=== PATIENT | female | born 1940 | race Caucasian/White ===

== ENCOUNTER 2022-11-04 13:37 | Observation (INO) | payer MEDICARE, BC ==
[2022-11-04] MEDS ORDERED: SUBLIMAZE 100 MCG/2 ML IV ONE (15:04)
[2022-11-04] MEDS ORDERED: SUBLIMAZE 100 MCG/2 ML ONE (15:05)
--- NOTE | 2022-11-04 15:10 | XRAY ---
Indication: Right hip/femur pain following fall. Multiple contiguous axial images obtained through the right femur to include hip and knee joint. Sagittal and coronal reformatted images obtained. Comparison: None Osseous structures demineralized consistent with patient's age. Nondisplaced hairline fractures involving posterior roof and medial wall right acetabulum. Additional mildly displaced fracture right inferior pubic ramus with bayonet apposition/alignment. 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 Tiny fabella posterior to lateral condyle. No other acute fracture or suspicious bony lesions. Right hip and right knee joint intact without abnormal effusion. Visualized noncontrasted soft tissues demonstrates minimal right iliac and right common femoral artery calcifications. Impression: 1. Nondisplaced fracture right acetabulum and mild displaced right inferior pubic ramus fracture. 2. Incidental osteopenia, right femur neck bone cyst, lateral femoral condyle bone island, and minimal arteriosclerotic disease.
--- NOTE | 2022-11-04 15:16 | ERPHSYRPT ---
- History of Present Illness Time Seen by Provider: 11/04/22 15:10 Source: patient Exam Limitations: no limitations Patient Subjective Stated Complaint: Fall Triage Nursing Assessment: Patient brought back to ED per EMS and transferred to bed with assist of 2. Patient A+O X.3 Patient's skin pink, warm and dry. Patient complains of fall. Patient states she was standing on a 3 step ladder and it was not locked and she fell backwards landing on her buttocks. Patient complains of right hip/pelvic and buttock pain. Shortening and external rotation noted to right leg. Patient complains of pain 4/10. Physician History: Patient is a 82-year-old female presents to our ED via EMS for evaluation of right hip pain. Patient was standing on a stepladder. Patient fell off of the ladder onto her right hip. Patient now has significant pain at her right hip rating to her groin area. Pain rated 4 out of 10. Patient received 50 mcg of fentanyl prior to arrival. Patient declined additional pain medication. No other injuries. No BHT or LOC. No neck pain. Cervical spine cleared clinically. Symptoms are moderate in intensity. Movement reproduces pain. Pain improved with rest. Patient's son at bedside. They voiced no other complaints or concerns at this time. Portions of this note were created with voice recognition technology. There may be grammatical, spelling, punctuation or sound alike errors Timing/Duration: today Severity: moderate Modifying Factors: Improves With: movement Associated Symptoms: denies symptoms Allergies/Adverse Reactions: egg Allergy (Verified 11/04/22 13:38) Home Medications: Calcium Carbonate/Vitamin D3 [Calcium 600 + Vit D Tablet] 1 tab PO DAILY 11/20/20 [History] Hx Influenza Vaccination/Date Given: No Hx Pneumococcal Vaccination/Date Given: No Immunizations Up to Date: Yes Travel Risk - International Travel Have you traveled outside of the country in past 3 weeks: No - Coronavirus Screening Are you exhibiting any of the following symptoms?: No Close contact with a COVID-19 positive Pt in past 14-21 Days: No - Vaccine Status Have you recieved a Covid-19 vaccination: Yes [facility] [employer]: Unknown - Vaccination Dates Date of 2cond Vaccination (if applicable): na Dates if Unknown: na - Review of Systems Constitutional: No Symptoms, No Fever, No Chills Eyes: No Symptoms Ears, Nose, & Throat: No Symptoms Respiratory: No Symptoms, No Cough, No Dyspnea Cardiac: No Symptoms, No Chest Pain, No Edema, No Syncope Abdominal/Gastrointestinal: No Symptoms, No Abdominal Pain, No Nausea, No Vomiting, No Diarrhea Genitourinary Symptoms: No Symptoms, No Dysuria Musculoskeletal: No Symptoms, No Back Pain, No Neck Pain Skin: No Symptoms, No Rash Neurological: No Symptoms, No Dizziness, No Focal Weakness, No Sensory Changes Psychological: No Symptoms Endocrine: No Symptoms Hematologic/Lymphatic: No Symptoms Immunological/Allergic: No Symptoms All Other Systems: Reviewed and Negative - Past Medical History Pertinent Past Medical History: Yes Neurological History: No Pertinent History ENT History: Cataracts Cardiac History: No Pertinent History Respiratory History: Tuberculosis Endocrine Medical History: No Pertinent History Musculoskeletal History: Osteoporosis GI Medical History: No Pertinent History History: No Pertinent History Psycho-Social History: No Pertinent History Female Reproductive Disorders: No Pertinent History - Past Surgical History Past Surgical History: Yes Neuro Surgical History: No Pertinent History Cardiac: No Pertinent History Respiratory: No Pertinent History Gastrointestinal: Appendectomy Genitourinary: No Pertinent History Musculoskeletal: Orthopedic Surgery Female Surgical History: Tubal Ligation Other Surgical History: right knee plates and screws, skin cancer removed on nose - Social History Smoking Status: Former smoker How long have you smoked: 65 Exposure to second hand smoke: Yes Drug Use: none Patient Lives Alone: No - Nursing Vital Signs Nursing Vital Signs: Initial Vital Signs Temperature 98.7 F 11/04/22 13:39 Pulse Rate 86 11/04/22 13:39 Respiratory Rate 18 11/04/22 13:39 Blood Pressure 140/68 11/04/22 13:39 O2 Sat by Pulse Oximetry 95 11/04/22 13:39 Pain Scale Pain Intensity 0 - Physical Exam General Appearance: no apparent distress, alert Eye Exam: PERRL/EOMI, eyes nml inspection Ears, Nose, Throat Exam: normal ENT inspection, TMs normal, pharynx normal, moist mucous membranes Neck Exam: normal inspection, non-tender, supple, full range of motion Respiratory Exam: normal breath sounds, lungs clear, airway intact, No respiratory distress Cardiovascular Exam: regular rate/rhythm, normal heart sounds, normal peripheral pulses Gastrointestinal/Abdomen Exam: soft, normal bowel sounds, No tenderness, No mass Pelvic Exam: other (Tenderness to palpation right hip) Back Exam: normal inspection, normal range of motion, No CVA tenderness, No vertebral tenderness Extremity Exam: normal inspection, normal range of motion, pelvis stable Neurologic Exam: alert, oriented x 3, cooperative, normal mood/affect, nml cerebellar function, nml station & gait, sensation nml, No motor deficits Skin Exam: normal color, warm, dry, No rash Lymphatic Exam: No adenopathy SpO2 Interpretation: normal SpO2: 95 O2 Delivery: Room Air - Course Nursing assessment & vital signs reviewed: Yes - CT Exams Lower Extremity CT Interpretation: Tele-radiologist Report (Fracture of right acetabulum and right inferior pubic ramus fracture. Right femoral neck bone cyst) Ordered Tests: Active Orders 24 hr Category Date Time Status Villarreal [Catheter-[place] Villarreal] STAT Care 11/04/22 15:59 Active LOWER EXTREMITY WO CONTRAST [CT] Stat Exams 11/04/22 14:14 Completed CBC W DIFF Stat Lab 11/04/22 15:55 Completed CMP Stat Lab 11/04/22 15:55 Completed UA W/RFX UR CULTURE Stat Lab 11/04/22 14:45 Completed Transfer Order Routine Transfer 11/04/22 Ordered Medication Summary Discontinued Medications Generic Name Dose Route Start Last Admin Trade Name Tuan PRN Reason Stop Dose Admin Fentanyl Citrate 50 mcg 11/04/22 15:04 11/04/22 15:06 Fentanyl Citrate 100 Mcg/2 Ml* Vial IV 11/04/22 15:05 50 mcg STAT ONE Administration Fentanyl Citrate Confirm 11/04/22 15:05 Fentanyl Citrate 100 Mcg/2 Ml* Vial Administered 11/04/22 15:06 Dose 100 mcg .ROUTE .[employer]-MED ONE Lab/Rad Data: Laboratory Result Diagrams 11/04/22 15:55 11/04/22 15:55 Laboratory Results 11/04/22 11/04/22 11/04/22 Range/Units 18:00 15:55 15:55 WBC 12.4 H (4.0-10.5) x10^3/uL RBC 3.48 L (4.1-5.4) x10^6/uL Hgb 11.0 L (12.0-16.0) g/dL Hct 33.8 L (35-47) % MCV 97.1 (78-100) fL MCH 31.6 (26-32) pg MCHC 32.5 (32-36) g/dL RDW 12.6 (11.5-14.0) % Plt Count 161 (150-450) x10^3/uL MPV 9.9 (7.5-11.0) fL Gran % 78.0 H (36.0-66.0) % Immature Gran % (Auto) 0.6 H (0.00-0.4) % Nucleat RBC Rel Count 0.0 (0.00-0.1) % Eos # (Auto) 0.07 (0-0.5) x10^3/uL Immature Gran # (Auto) 0.08 H (0.00-0.03) x10^3u/L Absolute Lymphs (auto) 1.80 (1.0-4.6) x10^3/uL Absolute Monos (auto) 0.73 (0.0-1.3) x10^3/uL Absolute Nucleated RBC 0.00 (0.00-0.01) x10^3u/L Lymphocytes % 14.5 L (24.0-44.0) % Monocytes % 5.9 (0.0-12.0) % Eosinophils % 0.6 (0.00-5.0) % Basophils % 0.4 (0.0-0.4) % Absolute Granulocytes 9.71 H (1.4-6.9) x10^3/uL Basophils # 0.05 (0-0.4) x10^3/uL Sodium 142 (137-145) mmol/L Potassium 4.3 (3.5-5.1) mmol/L Chloride 107 (98-107) mmol/L Carbon Dioxide 31 H (22-30) mmol/L Anion Gap 7.8 (5-15) MEQ/L BUN 15 (7-17) mg/dL Creatinine 1.16 H (0.52-1.04) mg/dL Estimated GFR 47.8 ML/MIN Glucose 125 H (74-106) mg/dL Calcium 9.0 (8.4-10.2) mg/dL Total Bilirubin 0.40 (0.2-1.3) mg/dL AST 32 (14-36) U/L ALT 23 (0-35) U/L Alkaline Phosphatase 68 (38-126) U/L Serum Total Protein 7.3 (6.3-8.2) g/dL Albumin 4.1 (3.5-5.0) g/dL Urine Color (Yellow) Urine Appearance (Clear) Urine pH (4.6-8.0) Ur Specific [place] (1.005-1.030) Urine Protein (Negative) Urine Glucose (UA) (Negative) mg/dL Urine Ketones (Negative) Urine Blood (Negative) Urine Nitrite (Negative) Urine Bilirubin (Negative) Urine Urobilinogen (0.2) mg/dL Ur Leukocyte Esterase (Negative) U Hyaline Cast (Auto) (0-2) /LPF Urine Microscopic RBC (0-5) /HPF Urine Microscopic WBC (0-5) /HPF Ur Epithelial Cells (None Seen) /HPF Urine Bacteria (None Seen) /HPF Urine Culture Reflexed (NO) Influenza Type A Ag NEGATIVE (NEGATIVE) Influenza Type B Ag NEGATIVE (NEGATIVE) RSV (PCR) NEGATIVE (Negative) SARS-CoV-2 (PCR) NEGATIVE (NEGATIVE) 11/04/22 Range/Units 14:45 WBC (4.0-10.5) x10^3/uL RBC (4.1-5.4) x10^6/uL Hgb (12.0-16.0) g/dL Hct (35-47) % MCV (78-100) fL MCH (26-32) pg MCHC (32-36) g/dL RDW (11.5-14.0) % Plt Count (150-450) x10^3/uL MPV (7.5-11.0) fL Gran % (36.0-66.0) % Immature Gran % (Auto) (0.00-0.4) % Nucleat RBC Rel Count (0.00-0.1) % Eos # (Auto) (0-0.5) x10^3/uL Immature Gran # (Auto) (0.00-0.03) x10^3u/L Absolute Lymphs (auto) (1.0-4.6) x10^3/uL Absolute Monos (auto) (0.0-1.3) x10^3/uL Absolute Nucleated RBC (0.00-0.01) x10^3u/L Lymphocytes % (24.0-44.0) % Monocytes % (0.0-12.0) % Eosinophils % (0.00-5.0) % Basophils % (0.0-0.4) % Absolute Granulocytes (1.4-6.9) x10^3/uL Basophils # (0-0.4) x10^3/uL Sodium (137-145) mmol/L Potassium (3.5-5.1) mmol/L Chloride (98-107) mmol/L Carbon Dioxide (22-30) mmol/L Anion Gap (5-15) MEQ/L BUN (7-17) mg/dL Creatinine (0.52-1.04) mg/dL Estimated GFR ML/MIN Glucose (74-106) mg/dL Calcium (8.4-10.2) mg/dL Total Bilirubin (0.2-1.3) mg/dL AST (14-36) U/L ALT (0-35) U/L Alkaline Phosphatase (38-126) U/L Serum Total Protein (6.3-8.2) g/dL Albumin (3.5-5.0) g/dL Urine Color Yellow (Yellow) Urine Appearance Cloudy A (Clear) Urine pH 8.0 (4.6-8.0) Ur Specific [place] 1.010 (1.005-1.030) Urine Protein Negative (Negative) Urine Glucose (UA) Negative (Negative) mg/dL Urine Ketones Negative (Negative) Urine Blood Negative (Negative) Urine Nitrite Negative (Negative) Urine Bilirubin Negative (Negative) Urine Urobilinogen 0.2 (0.2) mg/dL Ur Leukocyte Esterase Negative (Negative) U Hyaline Cast (Auto) NONE SEEN (0-2) /LPF Urine Microscopic RBC 0-2 (0-5) /HPF Urine Microscopic WBC 0-2 (0-5) /HPF Ur Epithelial Cells None Seen (None Seen) /HPF Urine Bacteria None Seen (None Seen) /HPF Urine Culture Reflexed NO (NO) Influenza Type A Ag (NEGATIVE) Influenza Type B Ag (NEGATIVE) RSV (PCR) (Negative) SARS-CoV-2 (PCR) (NEGATIVE) - Progress Progress: improved Progress Note: Spoke to Dr. Didier Marcos trauma surgeon at [facility] who declined transfer as they do not manage acetabular fractures. 11/04/22 15:31 Spoke to [place] orthopedic RONI at [facility]. They currently have no beds barbara ilable. They are boarding patients in the emergency department and havethem available to board our patient in their ED. [facility] reviewed patient's images and feel patient can go home with out patient clinic follow-up. Patient states that she cannot go home this condition and level of pain. 11/04/22 16:[address] Ngo who accepts admission to observation. Patient agrees to admission [facility] for further evaluation and treatment. 11/04/22 19:13 Patient is an 82-year-old female presents to our emergency department for evaluation of right hip pain. Patient arrived via EMS. Patient received fentanyl for pain control. Patient's complaint is acute in nature. Complexity of problem is moderate a new diagnosis with uncertain prognosis. State CODA level and why. testing ordered (labs/EKG/imaging). Number of imaging studies. Results obtained/reviewed/analyzed and that results used in MDM. State if patient is independent historian. Any outside documents reviewed. Any independent interpretation of tests/imaging/EKG. Discussion of tests results and management with outside provider Complexity of data reviewed and analyzed is moderate. Test ordered. Test reviewed. Imaging studies were ordered. Imaging reviewed. Discussion of test interpretation and management occurred with trauma surgeon. Patient also discussed with Dr. Ngo. We will keep patient in the hospital for further evaluation and treatment. Patient will likely require physical therapy and additional pain management. Orthopedics will be consulted from the floor. Patient received IV controlled medications. Risk of complication and risk morbidity/mortality is high due to requirement of IV controlled medication for pain control and hospitalization further evaluation and treatment. Plan of care discussed with patient. She agrees to admission [facility] for further evaluation and treatment. Portions of this note were created with voice recognition technology. There may be grammatical, spelling, punctuation or sound alike errors. Counseled pt/family regarding: diagnosis, need for follow-up, rad results - Departure Departure Disposition: Observation Clinical Impression: Fall, Fracture of right acetabulum, Fracture of right inferior pubic ramus Condition: Stable Critical Care Time: No Referrals: WONG BUSTOS NP [Primary Care Provider] - Follow up/PCP as directed Additional Instructions: Discharge/Care Plan CAITIEVA GIANG was seen on 11/04/22 in the Emergency Room. The patient was counseled regarding Diagnosis,Lab results, Imaging studies, need for follow up and when to return to the Emergency Room. Prescriptions given: Discharge Note I have spoken with the patient and/or caregivers. I have explained the patient's condition, diagnosis and treatment plan based on the information available to me at this time. I have answered the patient's and/or caregiver's questions and addressed any concerns. The patient and/or caregivers have as good understanding of the patient's diagnosis, condition and treatment plan as can be expected at this point. The vital signs have been stable. The patient's condition is stable and appropriate for discharge from the emergency department. The patient will pursue further outpatient evaluation with the primary care physician or other designated or consulting physician as outlined in the discharge instructions. The patient and/or caregivers are agreeable to this plan of care and follow-up instructions have been explained in detail. The patient and/or caregivers have received these instruction. The patient/and or caregivers are aware that any significant change in condition or worsening of symptoms should prompt an immediate return to this or the closest emergency department or call 911.
[2022-11-04 15:33] LABS: Appearance Cloudy (Clear); Bacteria None Seen /HPF (None Seen); Bilirubin Negative (Negative); Blood Negative (Negative); Epithelial Cells None Seen /HPF (None Seen); Glucose, Urine Negative (Negative); Hyaline Casts NONE SEEN /LPF (0-2); Ketones Negative (Negative); Leukocyte Esterase Negative (Negative); Nitrite Negative (Negative); Protein,Urine Dip Negative (Negative); RBC 0-2 /HPF (0-5); Urobilinogen 0.2 mg/dL (0.2); WBC 0-2 /HPF (0-5)
[2022-11-04 16:01] LABS: Absolute Neutrophil Ct (ANC) 9.71 x10^3/uL (1.4-6.9); BASOPHIL % 0.4 % (0.0-0.4); Basophil (Absolute #) 0.05 x10^3/uL (0-0.4); Eosinophil % 0.6 % (0.00-5.0); Eosinophil (Absolute #) 0.07 x10^3/uL (0-0.5); Hematocrit 33.8 % (35-47); IMMATURE GRAN # 0.08 x10^3u/L (0.00-0.03); IMMATURE GRAN % 0.6 % (0.00-0.4); Lymphocytes % 14.5 % (24.0-44.0); Mean Cell Volume 97.1 fL (78-100); Mean Corpuscular Hemoglobin 31.6 pg (26-32); Mean Corpuscular Hgb Concent. 32.5 g/dL (32-36); Mean Platelet Volume 9.9 fL (7.5-11.0); Monocyte (Absolute #) 0.73 x10^3/uL (0.0-1.3); Monocytes % 5.9 % (0.0-12.0); Platelet Count 161 x10^3/uL (150-450); Red Blood Count 3.48 x10^6/uL (4.1-5.4); Red Cell Distribution Width 12.6 % (11.5-14.0); White Blood Count 12.4 x10^3/uL (4.0-10.5)
[2022-11-04 16:12] LABS: ADD URINE CULTURE? NO (NO)
[2022-11-04 16:17] LABS: ALBUMIN 4.1 g/dL (3.5-5.0); ANION GAP 7.8 MEQ/L (5-15); BILIRUBIN,TOTAL 0.4 mg/dL (0.2-1.3); Creatinine 1 1.16 mg/dL (0.52-1.04); EST GLOMERULAR FILTRATION RATE 47.8 ML/MIN; Potassium 4.3 mmol/L (3.5-5.1); Total Protein 7.3 g/dL (6.3-8.2)
[2022-11-04 18:50] LABS: INFLUENZA A NEGATIVE (NEGATIVE); INFLUENZA B NEGATIVE (NEGATIVE); RESPIRATORY SYNCTIAL VIRUS NEGATIVE (Negative); SARS-CoV-2 Xpert Express NEGATIVE (NEGATIVE)
[2022-11-04] MEDS ORDERED: MORPHINE SULFATE 4 MG INJ IV PRN (20:14)
[2022-11-04] MEDS ORDERED: Zofran 4 MG/2 ML VIAL IV PRN (20:14)
[2022-11-04] MEDS ORDERED: MORPHINE SULFATE 2 MG INJ IV PRN (21:59)
[2022-11-04] MEDS: Hydromorphone 1 mg/ml Injection IV PRN (22:56)
[2022-11-05] MEDS: Hydromorphone 1 mg/ml Injection IV PRN (04:31)
[2022-11-05 05:00] LABS: Absolute Neutrophil Ct (ANC) 3.86 x10^3/uL (1.4-6.9); BASOPHIL % 0.5 % (0.0-0.4); Basophil (Absolute #) 0.04 x10^3/uL (0-0.4); Eosinophil % 1.6 % (0.00-5.0); Eosinophil (Absolute #) 0.12 x10^3/uL (0-0.5); Hematocrit 32.5 % (35-47); Hemoglobin 10.6 g/dL (12.0-16.0); IMMATURE GRAN # 0.02 x10^3u/L (0.00-0.03); IMMATURE GRAN % 0.3 % (0.00-0.4); Lymphocyte (Absolute #) 2.61 x10^3/uL (1.0-4.6); Lymphocytes % 35.2 % (24.0-44.0); Mean Cell Volume 98.2 fL (78-100); Mean Corpuscular Hgb Concent. 32.6 g/dL (32-36); Mean Platelet Volume 10.1 fL (7.5-11.0); Monocyte (Absolute #) 0.77 x10^3/uL (0.0-1.3); Monocytes % 10.4 % (0.0-12.0); Platelet Count 147 x10^3/uL (150-450); Red Blood Count 3.31 x10^6/uL (4.1-5.4); Red Cell Distribution Width 12.8 % (11.5-14.0); White Blood Count 7.4 x10^3/uL (4.0-10.5)
[2022-11-05 05:23] LABS: ALBUMIN 3.5 g/dL (3.5-5.0); ANION GAP 6.4 MEQ/L (5-15); BILIRUBIN,TOTAL 0.8 mg/dL (0.2-1.3); Calcium 8.2 mg/dL (8.4-10.2); Creatinine 1 1.05 mg/dL (0.52-1.04); EST GLOMERULAR FILTRATION RATE 53.6 ML/MIN; Potassium 4.1 mmol/L (3.5-5.1); Total Protein 6.5 g/dL (6.3-8.2)
--- NOTE | 2022-11-05 12:38 | PCM.HP ---
History of Present Illness - Chief Complaint Chief Complaint: fall, hip fracture History of Present Illness: is a 82 year old female pt of [employer] with reported hx TB, OA, R knee surgery, former smoker, who fell at home and came in through ER with hip and pelvic fractures. She apparently was standing on a step stool that wasn't locked properly and she fell. Had to crawl around to call for help. Unable to bear weight at all. CT showed R acetabular fracture, and R inferior pubic ramus fx, mildly displaced. ER doctor spoke with orthopedist at [facility], who said they wouldn't handle that fracture. Then he spoke with ortho PA from [facility] and they advised the pt could be d/c to home and followed outpatient, but the pt said she would not be able to get around at home. Since admission, pt has refused to be turned in bed multiple times due to pain. She says the pain medicine just makes her loopy. With movement her pain is "12/10" but when lying still it is 1-2/10. She does admit to several falls recently. - Review of Systems Musculoskeletal: Fall, Injury All Other Systems: Reviewed and Negative Medications & Allergies Home Medications: Home Medication List Calcium Carbonate/Vitamin D3 [Calcium 600 + Vit D Tablet] 1 tab PO DAILY 11/20/20 [History Confirmed 11/04/22] Rosuvastatin Calcium 20 mg PO LUNCH 11/04/22 [History Confirmed 11/04/22] Allergies/Adverse Reactions: Allergies Allergy/AdvReac Type Severity Reaction Status Date / Time egg Allergy Verified 11/04/22 13:38 - Past Medical History Past Medical History: Yes Neurological History: No Pertinent History ENT History: Cataracts Cardiac History: No Pertinent History Respiratory History: Tuberculosis Endocrine Medical History: No Pertinent History Musculoskelatal History: Osteoporosis GI Medical History: No Pertinent History History: No Pertinent History Pyscho-Social History: No Pertinent History Reproductive Disorders: No Pertinent History - Female History Are you now?: No - Past Surgical History Past Surgical History: Yes Neuro Surgical History: No Pertinent History Cardiac History: No Pertinent History Respiratory Surgery: No Pertinent History GI Surgical History: Appendectomy Genitourinary Surgical Hx: No Pertinent History Musculskeletal Surgical Hx: Orthopedic Surgery Female Surgical History: Tubal Ligation Other Surgical History: right knee plates and screws, skin cancer removed on nose - Social History Smoking Status: Former smoker How long have you smoked: 65 Exposure to second hand smoke: Yes Alcohol: None Drug Use: none - Physical Exam Vital Signs: Vital Signs - 24 hr Temp Pulse Resp BP Pulse Ox 11/05/22 11:15 98.4 F 76 16 109/53 100 11/05/22 07:09 97.1 F 78 16 106/70 94 L 11/05/22 06:49 94 L 11/05/22 05:11 11 L 97 11/05/22 04:30 97.9 F 74 20 110/56 98 11/04/22 23:53 98.1 F 80 16 111/60 96 11/04/22 21:30 10 L 98 11/04/22 20:42 99.4 F 82 20 135/64 94 L 11/04/22 20:30 81 16 123/61 94 L 11/04/22 19:45 79 18 114/66 97 11/04/22 19:19 95 11/04/22 17:59 88 18 109/70 95 11/04/22 13:39 98.7 F 86 18 140/68 95 General Appearance: no apparent distress, thin Neurologic Exam: alert, oriented x 3, cooperative Eye Exam: eyes nml inspection Ears, Nose, Throat Exam: moist mucous membranes Neck Exam: normal inspection Respiratory Exam: normal breath sounds, lungs clear, No crackles/rales, No rhonchi, No wheezing Cardiovascular Exam: regular rate/rhythm, normal heart sounds, No murmur Gastrointestinal/Abdomen Exam: soft, normal bowel sounds, No tenderness, No distention, No mass, No guarding, No rebound Back Exam: other (pt would not sit up or roll to either side d/t pain) Extremity Exam: No pedal edema, No swelling Skin Exam: normal color, warm, dry, No rash Results - Labs Lab/Micro Results: Lab Results-Last 24 Hours 11/04/22 11/04/22 11/04/22 Range/Units 14:45 15:55 15:55 WBC 12.4 H (4.0-10.5) x10^3/uL RBC 3.48 L (4.1-5.4) x10^6/uL Hgb 11.0 L (12.0-16.0) g/dL Hct 33.8 L (35-47) % MCV 97.1 (78-100) fL MCH 31.6 (26-32) pg MCHC 32.5 (32-36) g/dL RDW 12.6 (11.5-14.0) % Plt Count 161 (150-450) x10^3/uL MPV 9.9 (7.5-11.0) fL Gran % 78.0 H (36.0-66.0) % Immature Gran % (Auto) 0.6 H (0.00-0.4) % Nucleat RBC Rel Count 0.0 (0.00-0.1) % Eos # (Auto) 0.07 (0-0.5) x10^3/uL Immature Gran # (Auto) 0.08 H (0.00-0.03) x10^3u/L Absolute Lymphs (auto) 1.80 (1.0-4.6) x10^3/uL Absolute Monos (auto) 0.73 (0.0-1.3) x10^3/uL Absolute Nucleated RBC 0.00 (0.00-0.01) x10^3u/L Lymphocytes % 14.5 L (24.0-44.0) % Monocytes % 5.9 (0.0-12.0) % Eosinophils % 0.6 (0.00-5.0) % Basophils % 0.4 (0.0-0.4) % Absolute Granulocytes 9.71 H (1.4-6.9) x10^3/uL Basophils # 0.05 (0-0.4) x10^3/uL Sodium 142 (137-145) mmol/L Potassium 4.3 (3.5-5.1) mmol/L Chloride 107 (98-107) mmol/L Carbon Dioxide 31 H (22-30) mmol/L Anion Gap 7.8 (5-15) MEQ/L BUN 15 (7-17) mg/dL Creatinine 1.16 H (0.52-1.04) mg/dL Estimated GFR 47.8 ML/MIN Glucose 125 H (74-106) mg/dL Calcium 9.0 (8.4-10.2) mg/dL Total Bilirubin 0.40 (0.2-1.3) mg/dL AST 32 (14-36) U/L ALT 23 (0-35) U/L Alkaline Phosphatase 68 (38-126) U/L Serum Total Protein 7.3 (6.3-8.2) g/dL Albumin 4.1 (3.5-5.0) g/dL Urine Color Yellow (Yellow) Urine Appearance Cloudy A (Clear) Urine pH 8.0 (4.6-8.0) Ur Specific Mentor 1.010 (1.005-1.030) Urine Protein Negative (Negative) Urine Glucose (UA) Negative (Negative) mg/dL Urine Ketones Negative (Negative) Urine Blood Negative (Negative) Urine Nitrite Negative (Negative) Urine Bilirubin Negative (Negative) Urine Urobilinogen 0.2 (0.2) mg/dL Ur Leukocyte Esterase Negative (Negative) U Hyaline Cast (Auto) NONE SEEN (0-2) /LPF Urine Microscopic RBC 0-2 (0-5) /HPF Urine Microscopic WBC 0-2 (0-5) /HPF Ur Epithelial Cells None Seen (None Seen) /HPF Urine Bacteria None Seen (None Seen) /HPF Urine Culture Reflexed NO (NO) Influenza Type A Ag (NEGATIVE) Influenza Type B Ag (NEGATIVE) RSV (PCR) (Negative) SARS-CoV-2 (PCR) (NEGATIVE) 11/04/22 11/05/22 11/05/22 Range/Units 18:00 04:50 04:50 WBC 7.4 (4.0-10.5) x10^3/uL RBC 3.31 L (4.1-5.4) x10^6/uL Hgb 10.6 L (12.0-16.0) g/dL Hct 32.5 L (35-47) % MCV 98.2 (78-100) fL MCH 32.0 (26-32) pg MCHC 32.6 (32-36) g/dL RDW 12.8 (11.5-14.0) % Plt Count 147 L (150-450) x10^3/uL MPV 10.1 (7.5-11.0) fL Gran % 52.0 (36.0-66.0) % Immature Gran % (Auto) 0.3 (0.00-0.4) % Nucleat RBC Rel Count 0.0 (0.00-0.1) % Eos # (Auto) 0.12 (0-0.5) x10^3/uL Immature Gran # (Auto) 0.02 (0.00-0.03) x10^3u/L Absolute Lymphs (auto) 2.61 (1.0-4.6) x10^3/uL Absolute Monos (auto) 0.77 (0.0-1.3) x10^3/uL Absolute Nucleated RBC 0.00 (0.00-0.01) x10^3u/L Lymphocytes % 35.2 (24.0-44.0) % Monocytes % 10.4 (0.0-12.0) % Eosinophils % 1.6 (0.00-5.0) % Basophils % 0.5 (0.0-0.4) % Absolute Granulocytes 3.86 (1.4-6.9) x10^3/uL Basophils # 0.04 (0-0.4) x10^3/uL Sodium 137 (137-145) mmol/L Potassium 4.1 (3.5-5.1) mmol/L Chloride 106 (98-107) mmol/L Carbon Dioxide 29 (22-30) mmol/L Anion Gap 6.4 (5-15) MEQ/L BUN 13 (7-17) mg/dL Creatinine 1.05 H (0.52-1.04) mg/dL Estimated GFR 53.6 ML/MIN Glucose 95 (74-106) mg/dL Calcium 8.2 L (8.4-10.2) mg/dL Total Bilirubin 0.80 (0.2-1.3) mg/dL AST 27 (14-36) U/L ALT 20 (0-35) U/L Alkaline Phosphatase 54 (38-126) U/L Serum Total Protein 6.5 (6.3-8.2) g/dL Albumin 3.5 (3.5-5.0) g/dL Urine Color (Yellow) Urine Appearance (Clear) Urine pH (4.6-8.0) Ur Specific Mentor (1.005-1.030) Urine Protein (Negative) Urine Glucose (UA) (Negative) mg/dL Urine Ketones (Negative) Urine Blood (Negative) Urine Nitrite (Negative) Urine Bilirubin (Negative) Urine Urobilinogen (0.2) mg/dL Ur Leukocyte Esterase (Negative) U Hyaline Cast (Auto) (0-2) /LPF Urine Microscopic RBC (0-5) /HPF Urine Microscopic WBC (0-5) /HPF Ur Epithelial Cells (None Seen) /HPF Urine Bacteria (None Seen) /HPF Urine Culture Reflexed (NO) Influenza Type A Ag NEGATIVE (NEGATIVE) Influenza Type B Ag NEGATIVE (NEGATIVE) RSV (PCR) NEGATIVE (Negative) SARS-CoV-2 (PCR) NEGATIVE (NEGATIVE) - Radiology Impressions Radiology Exams & Impressions: Radiology Procedures Category Date Time Status LOWER EXTREMITY WO CONTRAST [CT] Stat Exams 11/04/22 14:14 Completed - Other Procedures and Tests Respiratory Therapy 11/05/22 06:50 Oxygen NASAL CANNULA 2 lpm Assessment/Plan (1) Fracture of right acetabulum Current Visit: Yes Status: Acute Qualifiers: Encounter type: initial encounter Sublocation of acetabulum: unspecified portion of acetabulum Fracture type: closed Fracture alignment: nondisplaced Qualified Code(s): S32.401A - Unspecified fracture of right acetabulum, initial encounter for closed fracture Assessment & Plan: I advised patient that she needs rehab - otherwise this fall carries serious morbidity and mortality. I told her, "Without rehab, you will just lay here and get sick and ." She was frankly refusing rehab to discharge planning this morning, but seems more open to it now. Will go ahead and consult PT. Could consult outpatient ortho WAREHOUSER if needed. Code(s): S32.401A - UNSP FRACTURE OF RIGHT ACETABULUM, INIT FOR CLOS FX (2) Fall Current Visit: Yes Status: Acute Qualifiers: Encounter type: initial encounter Qualified Code(s): W19.XXXA - Unspecified fall, initial encounter Code(s): W19.XXXA - UNSPECIFIED FALL, INITIAL ENCOUNTER (3) Fracture of right inferior pubic ramus Current Visit: Yes Status: Acute Qualifiers: Encounter type: initial encounter Fracture type: closed Qualified Code(s): S32.591A - Other specified fracture of right pubis, initial encounter for closed fracture Code(s): S32.591A - OTH FRACTURE OF RIGHT PUBIS, INIT ENCNTR FOR CLOSED FRACTURE
[2022-11-05] MEDS ORDERED: OXYCODONE-ACETAMINOPHEN 10-325 PO PRN (12:43)
--- NOTE | 2022-11-05 13:02 | XRAY ---
Indication: FDC placement. Comparison: None Portable chest hyperinflated with mild biapical pleural thickening, mild right hemidiaphragm elevation, and a few tiny bilateral calcified granulomas. No focal infiltrate, consolidation, or large effusion. Heart not enlarged. Bony thorax intact with osteopenia and mild degenerative changes. Impression: Nonacute hyperinflated chest with chronic features.
[2022-11-05] MEDS ORDERED: TYLENOL 325 MG PO PRN (13:24)
[2022-11-05] MEDS ORDERED: TYLENOL 325 MG ONE (13:29)
[2022-11-05] MEDS: ENOXAPARIN SODIUM SQ SCH (13:33)
[2022-11-05] MEDS: Calcium 500MG W/Vit D Tablet PO SCH (15:54)
[2022-11-05] MEDS: ZOCOR 20MG PO SCH (15:54)
[2022-11-06] MEDS: Hydromorphone 1 mg/ml Injection IV PRN ×2 (03:33→09:12)
[2022-11-06 05:12] LABS: Hematocrit 31.9 % (35-47); Hemoglobin 10.4 g/dL (12.0-16.0); Mean Cell Volume 97.3 fL (78-100); Mean Corpuscular Hemoglobin 31.7 pg (26-32); Mean Corpuscular Hgb Concent. 32.6 g/dL (32-36); Mean Platelet Volume 10.3 fL (7.5-11.0); Platelet Count 131 x10^3/uL (150-450); Red Blood Count 3.28 x10^6/uL (4.1-5.4); Red Cell Distribution Width 12.8 % (11.5-14.0); White Blood Count 7.9 x10^3/uL (4.0-10.5)
[2022-11-06 05:44] LABS: ANION GAP 8.2 MEQ/L (5-15); Calcium 8.6 mg/dL (8.4-10.2); Creatinine 1 1.03 mg/dL (0.52-1.04); EST GLOMERULAR FILTRATION RATE 54.8 ML/MIN; PREALBUMIN 16.03 mg/dL (17.6-36.0)
[2022-11-06] MEDS: ENOXAPARIN SODIUM SQ SCH (08:47)
[2022-11-06] MEDS: Calcium 500MG W/Vit D Tablet PO SCH (08:48)
--- NOTE | 2022-11-06 09:00 | PCM.DS ---
Discharge Summary Date of Admission: 11/04/22 20:12 Admitting Physician: TRENTON PRIEST Consults: Consults on Case 11/06/22 08:14 Consult Ortho ROUTINE Primary Care Provider: WONG ALVARENGA Allergies Allergies egg Allergy (Verified 11/04/22 13:38) Hospital Summary - Hospital Course Hospital Course: is a 82 year old female pt of [facility] with reported hx TB, OA, R knee surgery, former smoker, who fell at home and came in through ER with hip and pelvic fractures. She apparently was standing on a step stool that wasn't locked properly and she fell. Had to crawl around to call for help. Unable to bear weight at all. CT showed R acetabular fracture, and R inferior pubic ramus fx, mildly displaced. ER doctor spoke with orthopedist at [facility], who said they wouldn't handle that fracture. Then he spoke with ortho PA from [facility] and they advised the pt could be d/c to home and followed outpatient, but the pt said she would not be able to get around at home. Our INFORMATION TECHNOLOGY MANAGER for ortho, Jyothi Quintero, to see the pt today. Since admission, pt has been refusing to be turned and refusing PT due to pain. I have told her multiple times that she will not get better without moving, a lthough it will be painful, and without moving/therapy this injury may lead directly to her . She will be discharged to SNF for therapy. - Vitals & Intake/Output Vital Signs: Vital Signs Temperature 97.5 F 11/06/22 07:18 Pulse Rate 81 11/06/22 07:18 Respiratory Rate 16 11/06/22 07:18 Blood Pressure 115/58 11/06/22 07:18 O2 Sat by Pulse Oximetry 94 L 11/06/22 07:18 Intake & Output: Intake & Output 11/03/22 11/04/22 11/05/22 11/06/22 11:59 11:59 11:59 11:59 Intake Total 540 790 Output Total 200 900 Balance 340 -110 Weight 48.081 kg - Lab Result Diagrams: 11/06/22 05:13 11/06/22 05:13 Lab Results-Last 24 Hrs: Lab Results-Last 24 Hours 11/06/22 11/06/22 Range/Units 05:13 05:13 WBC 7.9 (4.0-10.5) x10^3/uL RBC 3.28 L (4.1-5.4) x10^6/uL Hgb 10.4 L (12.0-16.0) g/dL Hct 31.9 L (35-47) % MCV 97.3 (78-100) fL MCH 31.7 (26-32) pg MCHC 32.6 (32-36) g/dL RDW 12.8 (11.5-14.0) % Plt Count 131 L (150-450) x10^3/uL MPV 10.3 (7.5-11.0) fL Sodium 137 (137-145) mmol/L Potassium 4.0 (3.5-5.1) mmol/L Chloride 106 (98-107) mmol/L Carbon Dioxide 26 (22-30) mmol/L Anion Gap 8.2 (5-15) MEQ/L BUN 12 (7-17) mg/dL Creatinine 1.03 (0.52-1.04) mg/dL Estimated GFR 54.8 ML/MIN Glucose 98 (74-106) mg/dL Calcium 8.6 (8.4-10.2) mg/dL Prealbumin 16.03 L (17.6-36.0) mg/dL - Radiology Exams Ordered Rad Exams-Entire Visit: Radiology Procedures Category Date Time Status CHEST 1 VIEW (PORTABLE) Stat Exams 11/05/22 12:39 Completed LOWER EXTREMITY WO CONTRAST [CT] Stat Exams 11/04/22 14:14 Completed - Procedures and Test Procedures and Tests throughout Hospitalization: Therapy Orders & Screens 11/05/22 06:50 Oxygen NASAL CANNULA 2 lpm Comment: Diagnosis: fall, hip fracture 11/05/22 12:42 PT Eval & Treat ( Order) ONCE Reason for Eval:: hip and pelvic fx Diagnosis: fall, hip fracture Incentive Spirometry TID Comment: Diagnosis: fall, hip fracture Discharge Exam General Appearance: no apparent distress, alert, thin Neurologic Exam: oriented x 3, cooperative Eye Exam: eyes nml inspection Ears, Nose, Throat Exam: moist mucous membranes Neck Exam: normal inspection Respiratory Exam: normal breath sounds, lungs clear, No crackles/rales, No rhonchi, No wheezing Cardiovascular Exam: regular rate/rhythm, normal heart sounds, No murmur Gastrointestinal/Abdomen Exam: soft, normal bowel sounds, No tenderness, No distention, No mass, No guarding, No rebound Extremity Exam: normal inspection, No pedal edema, No swelling Skin Exam: normal color, warm, dry, No rash Wound Assessment: Skin/Wound Assessment Wound/Incision Assessment Start: 11/06/22 03:45 Text: Status: Active Freq: Q6H Protocol: Document 11/06/22 08:00 RB (Rec: 11/06/22 08:22 RB [id number]) Wound/Incision Assessment Right Lower Comment SWOLLEN AREA ON LEFT PELVIS Wound Photo Photo Taken No Final Diagnosis/Problem List - Final Discharge Diagnosis/Problem (1) Fracture of right acetabulum Current Visit: Yes Status: Acute Assessment & Plan: Ortho INFORMATION TECHNOLOGY MANAGER and PT to see again today. If she is approved, OK to discharge to snf today. Have told pt she has got to move and do therapy in order to recover, although it will be quite painful. Percocet prn. Code(s): S32.401A - UNSP FRACTURE OF RIGHT ACETABULUM, INIT FOR CLOS FX (2) Fall Current Visit: Yes Status: Acute Code(s): W19.XXXA - UNSPECIFIED FALL, INITIAL ENCOUNTER (3) Fracture of right inferior pubic ramus Current Visit: Yes Status: Acute Code(s): S32.591A - OTH FRACTURE OF RIGHT PUBIS, INIT ENCNTR FOR CLOSED FRACTURE - Discharge Disposition: DC TO ANY "OTHER" [facility] Condition: Stable Prescriptions: Continue Calcium Carbonate/Vitamin D3 [Calcium 600-Vit D3 400 Tablet] 1 tab PO DAILY Rosuvastatin Calcium 20 mg PO LUNCH Follow up with: WONG ALVARENGA NP [Primary Care Provider] -
[2022-11-06] MEDS ORDERED: NON-FORMULARY ITEM (Calcium Carbonate/Vitamin D3 [Calcium 600-Vit D3 400 Tablet] 1 EACH Ta PO SCH (10:00)
[2022-11-06] MEDS ORDERED: HYDROCODONE-ACETAMIN 10-325 MG PO ONE (11:53)
[2022-11-06] MEDS ORDERED: NON-FORMULARY ITEM (Rosuvastatin Calcium [Rosuvastatin Calcium] 20 MG Tablet) PO SCH (12:00)
[2022-11-06] MEDS: ZOCOR 20MG PO SCH (12:08)
[2022-11-06] MEDS: HYDROCODONE-ACETAMIN 10-325 MG PO SCH ×2 (16:42→21:59)
[2022-11-07 06:47] VITALS: O2SAT 96
[2022-11-07 07:15] VITALS: BP 93/52; PULSE 73
--- NOTE | 2022-11-07 08:02 | PCM.DS ---
Discharge Summary Date of Admission: 11/04/22 20:12 Admitting Physician: TRENTON PRIEST Consults: Consults on Case 11/06/22 08:14 Consult Ortho ROUTINE Primary Care Provider: WONG ALVARENGA Allergies Allergies egg Allergy (Verified 11/04/22 13:38) Hospital Summary - Hospital Course Hospital Course: is a 82 year old female pt of [facility] with reported hx TB, OA, R knee surgery, former smoker, who fell at home and came in through ER with hip and pelvic fractures. She apparently was standing on a step stool that wasn't locked properly and she fell. Had to crawl around to call for help. Unable to bear weight at all. CT showed R acetabular fracture, and R inferior pubic ramus fx, mildly displaced. ER doctor spoke with orthopedist at [facility], who said they wouldn't handle that fracture. Then he spoke with ortho PA from [facility] and they advised the pt could be d/c to home and followed outpatient, but the pt said she would not be able to get around at home. Our HIGHWAY TRUCK DRIVER for ortho, Jyothi Quintero, to see the pt today. Pt was refusing to be turned and refusing PT due to pain. I have told her multiple times that she will not get better without moving, although it will be painful, and without moving/therapy this injury may lead directly to her . She has now been turning herself slowly in bed. She will be discharged to SNF for therapy with norco 10/325 scheduled for pain. - Vitals & Intake/Output Vital Signs: Vital Signs Temperature 98.7 F 11/07/22 07:00 Pulse Rate 73 11/07/22 07:00 Respiratory Rate 15 11/07/22 07:00 Blood Pressure 93/52 11/07/22 07:00 O2 Sat by Pulse Oximetry 96 11/07/22 07:00 Intake & Output: Intake & Output 11/04/22 11/05/22 11/06/22 11/07/22 11:59 11:59 11:59 11:59 Intake Total 867 864 8512 Output Total 502 182 4384 Balance 340 10 0 Weight 48.081 kg - Lab Result Diagrams: 11/06/22 05:13 11/06/22 05:13 - Radiology Exams Ordered Rad Exams-Entire Visit: Radiology Procedures Category Date Time Status CHEST 1 VIEW (PORTABLE) Stat Exams 11/05/22 12:39 Completed - Procedures and Test Procedures and Tests throughout Hospitalization: Therapy Orders & Screens 11/05/22 06:50 Oxygen NASAL CANNULA 2 lpm Comment: Diagnosis: fall, hip fracture 11/05/22 12:42 PT Eval & Treat (MD Order) ONCE Reason for Eval:: hip and pelvic fx Diagnosis: fall, hip fracture Incentive Spirometry TID Comment: Diagnosis: fall, hip fracture Discharge Exam General Appearance: no apparent distress, thin Neurologic Exam: alert, oriented x 3, cooperative Eye Exam: eyes nml inspection Ears, Nose, Throat Exam: moist mucous membranes Neck Exam: normal inspection Respiratory Exam: normal breath sounds, lungs clear, No crackles/rales, No rhonchi, No wheezing Cardiovascular Exam: regular rate/rhythm, normal heart sounds, No murmur Gastrointestinal/Abdomen Exam: soft, normal bowel sounds, No tenderness, No distention, No mass, No guarding, No rebound Extremity Exam: normal inspection, No pedal edema, No swelling Skin Exam: normal color, warm, dry, No rash Wound Assessment: Skin/Wound Assessment Wound/Incision Assessment Start: 11/06/22 03 :45 Text: Status: Active Freq: Q6H Protocol: Document 11/07/22 02:00 LB (Rec: 11/07/22 02:56 LB [id number]) Wound Photo Photo Taken No Final Diagnosis/Problem List - Final Discharge Diagnosis/Problem (1) Fracture of right acetabulum Current Visit: Yes Status: Acute Assessment & Plan: D/c to SNF for therapy. She seems more motivated to move and do therapy - really wants to improve. Sending out on JLGOV 1 po QID scheduled. One week e-scribed by me to [employer] in [employer]. Code(s): S32.401A - UNSP FRACTURE OF RIGHT ACETABULUM, INIT FOR CLOS FX (2) Fall Current Visit: Yes Status: Acute Code(s): W19.XXXA - UNSPECIFIED FALL, INITIAL ENCOUNTER (3) Fracture of right inferior pubic ramus Current Visit: Yes Status: Acute Code(s): S32.591A - OTH FRACTURE OF RIGHT PUBIS, INIT ENCNTR FOR CLOSED FRACTURE - Discharge Disposition: DC TO ANY "OTHER" DETENT[facility] Condition: Stable Prescriptions: New Hydrocodone/Acetaminophen [Hydrocodone-Acetamin 10-325 mg] 1 each PO QID #28 tablet MDD 4 Continue Calcium Carbonate/Vitamin D3 [Calcium 600-Vit D3 400 Tablet] 1 tab PO DAILY Rosuvastatin Calcium 20 mg PO LUNCH Additional Instructions: DETENTION ORDERS: ADMIT TO LONG TERM CARE [address] DIET PT/OT EVAL AND TREAT ROUTINE CATHETER CARE SEE ATTACHED MED LIST Follow up with: WONG ALVARENGA NP [Primary Care Provider] -
[2022-11-07] MEDS: HYDROCODONE-ACETAMIN 10-325 MG PO SCH (08:43)
[2022-11-07] MEDS: Calcium 500MG W/Vit D Tablet PO SCH (08:43)
[2022-11-07] MEDS: ENOXAPARIN SODIUM SQ SCH (08:44)
== END 2022-11-07 10:10 ==
LOC: ED 13:37 → MED SURG 20:12
PROVIDERS: ADMIT Family Medicine; ATTEND Family Medicine
DX: S32.401A Unspecified fracture of right acetabulum, initial encounter for closed fracture (principal); W19.XXXA Unspecified fall, initial encounter; S32.591A Other specified fracture of right pubis, initial encounter for closed fracture; Z79.899 Other long term (current) drug therapy; Z20.828 Contact with and (suspected) exposure to other viral communicable diseases; Z85.828 Personal history of other malignant neoplasm of skin
CPT/HCPCS: 0241U; 36415; 51702; 71045; 73700; 80048; 80053; 81001; 84134; 85025; 85027; 94762; 96374; 97161; 97530; 99242; 99284; 93268; J1170; J1650; J2270; J3010; A9270-GY; G0378